=== PATIENT | male | born 2000 | race Caucasian/White ===

== ENCOUNTER 2023-08-02 17:35 | Emergency (ER) | payer SELFPAY ==
[~2023-08-02] VITALS: Ht 162.6 cm; Wt 74.0 kg
[2023-08-02 17:58] VITALS: TEMP 98
[2023-08-02] MEDS: LIDOcaine 1% 30ml preserv. free vial IJ STA (19:45)
[2023-08-02 20:17] VITALS: BP 138/84; PULSE 69; RESP 16; O2SAT 99
== END 2023-08-02 20:23 | disposition home or self-care (01) ==
LOC: ER 17:36
DX: L60.0 Ingrowing nail (principal)
CPT/HCPCS: 11730; 99284; A6258; A6446; A6449